=== PATIENT | female | born 1940 | race Caucasian/White ===

== ENCOUNTER 2022-10-09 14:26 | Emergency (ER) | payer OTHER, SELFPAY ==
[2022-10-09 14:31] VITALS: BP 177/101; PULSE 96; RESP 18; TEMP 36.2; O2SAT 99; BMI 23.5
--- NOTE | 2022-10-09 14:52 | ED_ITS ---
HPI - General Adult General Chief complaint: High Blood Pressure Stated complaint: high blood pressure, from [facility] w/cardiac concerns Time Seen by Provider: 10/09/22 14:35 History of Present Illness HPI narrative: This 82-year-old female went to urgent care because of elevated blood pressure readings at home. At urgent care she did have blood pressure readings around 170 or 184 systolic value. An EKG was done there which showed some evidence of premature atrial complexes. The provider there was concerned about the EKG and the blood pressure so the the patient was sent here for further evaluation. The patient herself states that she has no complaints and feels completely normal. She does take metoprolol. She also has a pacemaker. She states that she does have history of premature beats and was told she should not worry about them. She denies having any chest pain, nausea, vomiting, lightheadedness, shortness of breath, or diaphoresis. Related Data Home Medications Medication Instructions Recorded Confirmed alendronate 70 mg tablet 70 mg PO 10/09/22 10/09/22 metoprolol succinate 25 mg 12.5 mg PO DAILY 10/09/22 10/09/22 tablet,extended release 24 hr pravastatin 20 mg tablet 20 mg PO DAILY 10/09/22 10/09/22 rivaroxaban 20 mg tablet (Xarelto) mg PO 10/09/22 10/09/22 Previous Rx's Medication Instructions Recorded fluorouracil 5 % topical cream 1 applic topical ONCE #40 grams 10/06/22 Allergies Allergy/AdvReac Type Severity Reaction Status Date / Time NSAIDS (Non-Steroidal Allergy Unknown Verified 10/09/22 13:36 Anti-Inflamma Review of Systems Status of ROS: Reports: 10 or more systems reviewed and unremarkable except as noted in History and below Narrative: Constitutional: No fevers, no weight gain or loss. Eyes: No discharge. No vision changes. HENT: No congestion, no sore throat, no ear pain. Cardiovascular: No chest pain, no palpitations. Respiratory: No shortness of breath, no wheezes, no cough. Gastrointestinal: No abdominal pain, no vomiting, no diarrhea. Genitourinary: No dysuria, no hematuria. Musculoskeletal: Normal range of motion. Skin: No rashes, no pruritis. Neurological: No dizziness, weakness, sensory change, speech change. Endo/Heme/Allergies: No bruising or bleeding. No polydipsia. Pysch: no suicidality, no anxiety, no insomnia. All other systems reviewed and are negative. [facility] Medical History (Updated 10/09/22 @ 15:18 by Neto Covington MD) Myocardial infarction ?I21.9 - Acute myocardial infarction, unspecified (ICD-10) Premature atrial beats ?I49.1 - Atrial premature depolarization (ICD-10) Hypertension ?I10 - Essential (primary) hypertension (ICD-10) Actinic keratosis ?L57.0 - Actinic keratosis (ICD-10) Exam Narrative: Exam Narrative: Constitutional: Well-developed, well-nourished, no acute distress. HEENT: Normocephalic, atraumatic. Neck: Normal range of motion. Nontender. Supple. Heart: Regular. No murmurs. Normal rate. Intact distal pulses. Lungs: Clear to auscultation. No chest discomfort. No wheezes, rhonchi, or rales. Abdomen: Normal bowel sounds. Nontender. No rebound tenderness. Genitalia: Deferred. Back: No midline tenderness. Normal range of motion. Extremities: Normal range of motion. No injury. Skin: Intact. No rash. Warm. No erythema or pallor. Neurologic: No altered sensation. No weakness. Alert and oriented. Psychiatric: No suicidality. No anxiety or depression. No insomnia. Nursing notes and vitals signs are reviewed. Const: Vital Signs, click to edit/add: Vital Signs - 24 hr 10/09/22 14:31 Temperature 97.1 F L Pulse Rate [Right Pulse Oximeter] 96 Respiratory Rate 18 Blood Pressure [Ri ght Upper Arm] 177/101 H Pulse Oximetry 99 Oxygen Delivery Me thod Room Air Course Vital Signs Vital signs: Initial Vital Signs Temperature 97.1 F L 10/09/22 14:31 Temperature Source Temporal Artery Scan 10/09/22 14:31 Pulse Rate 96 10/09/22 14:31 Respiratory Rate 18 10/09/22 14:31 Blood Pressure 177/101 H 10/09/22 14:31 Blood Pressure Mean 126 H 10/09/22 14:31 Blood Pressure Position Sitting 10/09/22 14:31 Pulse Oximetry 99 10/09/22 14:31 Oxygen Delivery Method Room Air 10/09/22 14:31 Vital Signs Temperature 97.1 F L 10/09/22 14:31 Pulse Rate 96 10/09/22 14:31 Respiratory Rate 18 10/09/22 14:31 Blood Pressure 177/101 H 10/09/22 14:31 Pulse Oximetry 99 10/09/22 14:31 Oxygen Delivery Method Room Air 10/09/22 14:31 Temperature 97.1 F L 10/09/22 14:31 Pulse Rate 96 10/09/22 14:31 Respiratory Rate 18 10/09/22 14:31 Blood Pressure 177/101 H 10/09/22 14:31 Pulse Oximetry 99 10/09/22 14:31 Oxygen Delivery Method Room Air 10/09/22 14:31 Medical Decision Making MDM Narrative Medical decision making narrative: This patient was sent here from urgent care because of some concerns about EKG findings. The patient made the appointment because her blood pressure was somewhat elevated. I did retrieve the EKG done at urgent care and did another 1 here. There are premature beats on both EKGs. There are no signs of ST or T- wave abnormality. Additionally I did review the patient's blood pressure record and see that for the most part she has acceptable blood pressures. There are some that are little bit low and some that are higher. She has an appointment to follow-up with her primary physician tomorrow and has another appointment to follow-up regarding her pacemaker a bit later. She is okay to return home and continue with these plans and appointments. ECG Data Attestation: I personally reviewed and interpreted this ECG as follows: Interpretation: Sinus rhythm with occasional PVCs and PACs. There are no specific ST or T-wave abnormalities. Rate is 81 beats per minute. Discharge Plan Discharge Clinical Impression: Asymptomatic PVCs Patient Disposition: Home, Self-Care Condition: Stable Additional Instructions: Continue current plans. Follow up with appointments as scheduled. Return if worsening. Prescriptions: No Action fluorouracil 5 % cream 1 applic topical ONCE Qty: 40 0RF Rx Instructions: Apply topically to face one time every weeek. metoprolol succinate 25 mg tablet extended release 24 hr 12.5 mg PO DAILY pravastatin 20 mg tablet 20 mg PO DAILY alendronate 70 mg tablet 70 mg PO Xarelto 20 mg tablet PO Follow Up/Referrals: Jocelyn Evans MD [Primary Care Provider] - Stand Alone Forms: [facility] Info Instructions
== END 2022-10-09 15:49 | disposition home or self-care (01) ==
PROVIDERS: Emergency Provider Emergency Medicine Emergency Medical Services; PCP Family Medicine
DX: I49.3 Ventricular premature depolarization (principal)
CPT/HCPCS: 93005; 99283; 99284